=== PATIENT | male | born 1980 | race Hispanic/Latino ===

== ENCOUNTER 2019-11-06 13:42 | Inpatient (IN) | payer OTHER, SELFPAY ==
[~2019-11-06] VITALS: Ht 165.1 cm; Wt 97.1 kg
[2019-11-06] MEDS ORDERED: CEFTRIAXONE SODIUM 1 GM ONE ×2 (15:30→15:38)
[2019-11-06] MEDS ORDERED: DEXAMETHASONE SOD PHOSPHATE 10MG/ML 1ML VIAL ONE ×2 (15:30→15:37)
[2019-11-06] MEDS ORDERED: AZITHROMYCIN 500MG+NS 250ML 0 ML IV ONE (15:30)
[2019-11-06] MEDS ORDERED: SODIUM CHLORIDE 0.9% 1000ML 1,000 ML IV ONE (15:30)
[2019-11-06] MEDS ORDERED: ACETAMINOPHEN EXTRA STRENGTH 500 MG TABLET ONE ×2 (15:31→15:39)
[2019-11-06] MEDS ORDERED: AZITHROMYCIN 500MG+NS 250ML 250 ML IV ONE (15:38)
[2019-11-06 15:52] LABS: BASOPHILS % (AUTO) 0.2 % (0.0-5.0); HEMATOCRIT 47.2 % (42-54); LYMPHOCYTES % (AUTO) 10.9 % (21.0-51.0); MEAN CORPUSCULAR HEMOGLOBIN 26.5 pg (27.0-33.0); MEAN CORPUSCULAR VOLUME 82.8 fL (79-99); NEUTROPHILS % (AUTO) 84.8 % (40.0-77.0); PLATELET COUNT (AUTO) 349 K/uL (130-400); RED CELL DISTRIBUTION WIDTH 12.6 % (11.0-15.5)
[2019-11-06 16:21] LABS: CARBON DIOXIDE 28 mmol/L (21-32); CHLORIDE 97 mmol/L (101-111); CREATININE 1.1 mg/dL (0.5-1.5); GLOMERULAR FILTR. RATE CALC 79 mL/min (>60); GLUCOSE,RANDOM 102 mg/dL (70-105); POTASSIUM 3.9 mmol/L (3.5-5.1); SODIUM SERUM 136 mmol/L (136-145); UREA NITROGEN, BLOOD 13 mg/dL (7-18)
[2019-11-06 16:22] LABS: INR 0.98 (0.85-1.15); PARTIAL THROMBOPLASTIN TIME 35.5 SEC (26.3-35.5); PROTHROMBIN TIME 10.6 SEC (9.6-11.6)
[2019-11-06 16:27] LABS: ABG BASE EXCESS 1.1 mmol/L (-2.0-3.0); ABG HCO3 25.9 mmol/L (21.0-28.0); ABG OXYGEN SATURATION 92.9 % (95.0-99.0); ABG PCO2 42 mmHg (35-48)
[2019-11-06 16:32] LABS: ALANINE AMINOTRANSFERASE 161 U/L (12-78); ALBUMIN 3.4 g/dL (3.5-5.0); ASPARTATE AMINOTRANSFERASE 104 U/L (10-37); BILIRUBIN,TOTAL 0.5 mg/dL (0.2-1.0); CREATINE KINASE, TOTAL 57 U/L (21-232); MYOGLOBIN 31 ng/mL (10-92); TOTAL PROTEIN, SERUM 8.5 g/dL (6.0-8.3); TROPONIN I < 0.04 ng/mL (0.00-0.06)
[2019-11-06] MEDS ORDERED: ONDANSETRON HCL 4 MG/2 ML VIAL IV PRN (20:15)
[2019-11-06] MEDS ORDERED: ALBUTEROL INHALER 90MCG/INH IH PRN (20:15)
[2019-11-06] MEDS ORDERED: NITROGLYCERIN 0.4 MG SL TAB SL PRN (20:15)
[2019-11-06] MEDS ORDERED: DIPHENHYDRAMINE HCL 25 MG CAPSULE PO PRN (20:15)
[2019-11-06] MEDS ORDERED: ACETAMINOPHEN 325 MG TAB PO PRN ×2 (20:15)
[2019-11-06] MEDS: FAMOTIDINE 20MG TAB 20 MG TAB PO SCH (21:00)
[2019-11-06] MEDS: METHYLPREDNISOLONE SOD SUCC 40MG/ML 1ML IVP SCH (21:00)
[2019-11-06] MEDS ORDERED: ERGOCALCIFEROL (VITAMIN D2) 50,000 UNIT CAPSULE PO ONE (21:15)
[2019-11-06] MEDS ORDERED: METHYLPREDNISOLONE SOD SUCC 40MG/ML 1ML ONE (21:20)
[2019-11-06] MEDS ORDERED: ASCORBIC ACID 500 MG TAB ONE (21:20)
[2019-11-06] MEDS ORDERED: ERGOCALCIFEROL (VITAMIN D2) 50,000 UNIT CAPSULE ONE (21:20)
[2019-11-06] MEDS ORDERED: ALBUTEROL INHALER 90MCG/INH IH ONE (21:20)
[2019-11-06] MEDS ORDERED: ZINC SULFATE 220 CAPSULE ONE (21:21)
[2019-11-06] MEDS ORDERED: FAMOTIDINE 20MG TAB 20 MG TAB ONE (21:21)
[2019-11-06] MEDS ORDERED: ENOXAPARIN SODIUM 40 MG/0.4 ML SYRINGE SQ ONE (21:21)
[2019-11-06] MEDS ORDERED: ACETAMINOPHEN 325 MG TAB ONE (22:18)
[2019-11-07] MEDS: ALBUTEROL INHALER 90MCG/INH IH SCH ×6 (00:15→20:15)
[2019-11-07 06:15] LABS: BASOPHILS % (AUTO) 0.1 % (0.0-5.0); HEMATOCRIT 43.9 % (42-54); LYMPHOCYTES % (AUTO) 10.2 % (21.0-51.0); MEAN CORPUSCULAR HEMOGLOBIN 26.9 pg (27.0-33.0); MEAN CORPUSCULAR HGB CONC 32.3 g/dL (32.0-36.0); MEAN CORPUSCULAR VOLUME 83.1 fL (79-99); MONOCYTES % (AUTO) 2.6 % (3.0-13.0); NEUTROPHILS % (AUTO) 85.8 % (40.0-77.0); PLATELET COUNT (AUTO) 335 K/uL (130-400); RED BLOOD CELL COUNT(AUTO) 5.28 MIL/uL (4.50-6.20); RED CELL DISTRIBUTION WIDTH 12.6 % (11.0-15.5); WHITE BLOOD COUNT (AUTO) 7.2 K/uL (4.8-10.8)
[2019-11-07 06:48] LABS: ALBUMIN 3.1 g/dL (3.5-5.0); BILIRUBIN,TOTAL 0.3 mg/dL (0.2-1.0); CREATININE 0.9 mg/dL (0.5-1.5); POTASSIUM 4.1 mmol/L (3.5-5.1); TOTAL PROTEIN, SERUM 7.9 g/dL (6.0-8.3)
[2019-11-07 07:38] LABS: CRP QUANTITATIVE 244.9 mg/L (0.00-9.0)
[2019-11-07] MEDS ORDERED: ENOXAPARIN SODIUM 60 MG/0.6 ML SQ ONE (08:03)
[2019-11-07] MEDS ORDERED: AZITHROMYCIN 500MG+NS 250ML 250 ML IV ONE (08:03)
[2019-11-07] MEDS ORDERED: ASCORBIC ACID 500 MG TAB ONE (08:03)
[2019-11-07] MEDS ORDERED: METHYLPREDNISOLONE SOD SUCC 40MG/ML 1ML ONE ×2 (08:03→20:05)
[2019-11-07] MEDS ORDERED: ZINC SULFATE 220 CAPSULE ONE (08:03)
[2019-11-07] MEDS ORDERED: FAMOTIDINE/PF 20 MG/2 ML VIAL IV ONE ×2 (08:04→20:06)
[2019-11-07] MEDS ORDERED: CEFTRIAXONE SODIUM 1 GM ONE (08:04)
[2019-11-07] MEDS: ENOXAPARIN SODIUM 40 MG/0.4 ML SYRINGE SQ SCH (09:00)
[2019-11-07] MEDS: CEFTRIAXONE SODIUM 1 GM IV SCH (09:00)
[2019-11-07] MEDS: FAMOTIDINE 20MG TAB 20 MG TAB PO SCH ×2 (09:00→21:00)
[2019-11-07] MEDS: ZINC SULFATE 220 CAPSULE PO SCH (09:00)
[2019-11-07] MEDS: ASCORBIC ACID 500 MG TAB PO SCH (09:00)
[2019-11-07] MEDS: AZITHROMYCIN 500MG+NS 250ML 250 ML IV SCH (09:00)
[2019-11-07] MEDS: METHYLPREDNISOLONE SOD SUCC 40MG/ML 1ML IVP SCH ×3 (09:00→21:00)
--- NOTE | 2019-11-07 20:03 | NUR ---
CALL TO SPOUSE FOR DC PLANNING CLAL MADE TO SPOUSE FOR DC PLANNING BY Jayleen AGUSTIN RN. SPOSUE STATES PATIENT INDPENDENT, NO DME, NO PCP, UNINSURED - ALL FAMILY WITH SYMPTOMS. DPC HOME, [facility] TO FOLLOW FOR NEEDS AT DC, [facility] UPDATED AND FAXED Addendum: 11/07/19 at 2004 by LINH PORTILLO RN CM Amended: Links added.
[2019-11-08] MEDS: ALBUTEROL INHALER 90MCG/INH IH SCH ×6 (00:15→20:15)
[2019-11-08 04:51] LABS: BASOPHILS % (AUTO) 0.2 % (0.0-5.0); HEMATOCRIT 40.9 % (42-54); LYMPHOCYTES % (AUTO) 5.5 % (21.0-51.0); MEAN CORPUSCULAR HEMOGLOBIN 26.7 pg (27.0-33.0); MEAN CORPUSCULAR VOLUME 83.3 fL (79-99); PLATELET COUNT (AUTO) 364 K/uL (130-400); RED BLOOD CELL COUNT(AUTO) 4.91 MIL/uL (4.50-6.20); RED CELL DISTRIBUTION WIDTH 12.6 % (11.0-15.5); WHITE BLOOD COUNT (AUTO) 19.2 K/uL (4.8-10.8)
[2019-11-08 05:08] LABS: ALANINE AMINOTRANSFERASE 115 U/L (12-78); ALBUMIN 2.8 g/dL (3.5-5.0); ASPARTATE AMINOTRANSFERASE 50 U/L (10-37); BILIRUBIN,TOTAL 0.2 mg/dL (0.2-1.0); CARBON DIOXIDE 30 mmol/L (21-32); CHLORIDE 105 mmol/L (101-111); CREATININE 0.9 mg/dL (0.5-1.5); GLOMERULAR FILTR. RATE CALC 99 mL/min (>60); GLUCOSE,RANDOM 151 mg/dL (70-105); LACTATE DEHYDROGENASE 305 U/L (81-234); POTASSIUM 4.2 mmol/L (3.5-5.1); SODIUM SERUM 141 mmol/L (136-145); TOTAL PROTEIN, SERUM 7.2 g/dL (6.0-8.3); UREA NITROGEN, BLOOD 22 mg/dL (7-18)
[2019-11-08] MEDS ORDERED: METHYLPREDNISOLONE SOD SUCC 40MG/ML 1ML ONE ×2 (08:40→20:22)
[2019-11-08] MEDS ORDERED: ENOXAPARIN SODIUM 40 MG/0.4 ML SYRINGE SQ ONE (08:41)
[2019-11-08] MEDS ORDERED: CEFTRIAXONE SODIUM 1 GM ONE (08:41)
[2019-11-08] MEDS ORDERED: AZITHROMYCIN 500MG+NS 250ML 250 ML IV ONE (08:41)
[2019-11-08] MEDS ORDERED: ASCORBIC ACID 500 MG TAB ONE (08:41)
[2019-11-08] MEDS ORDERED: FAMOTIDINE/PF 20 MG/2 ML VIAL IV ONE ×2 (08:42→20:22)
[2019-11-08] MEDS: ZINC SULFATE 220 CAPSULE PO SCH (09:00)
[2019-11-08] MEDS: ASCORBIC ACID 500 MG TAB PO SCH (09:00)
[2019-11-08] MEDS: CEFTRIAXONE SODIUM 1 GM IV SCH (09:00)
[2019-11-08] MEDS: METHYLPREDNISOLONE SOD SUCC 40MG/ML 1ML IVP SCH ×3 (09:00→21:00)
[2019-11-08] MEDS: AZITHROMYCIN 500MG+NS 250ML 250 ML IV SCH (09:00)
[2019-11-08] MEDS: ENOXAPARIN SODIUM 40 MG/0.4 ML SYRINGE SQ SCH (09:00)
[2019-11-08] MEDS: FAMOTIDINE 20MG TAB 20 MG TAB PO SCH ×2 (09:00→21:00)
[2019-11-09] MEDS: ALBUTEROL INHALER 90MCG/INH IH SCH ×6 (00:15→20:15)
[2019-11-09] MEDS ORDERED: METHYLPREDNISOLONE SOD SUCC 40MG/ML 1ML ONE ×3 (08:43→20:33)
[2019-11-09] MEDS ORDERED: ASCORBIC ACID 500 MG TAB ONE (08:44)
[2019-11-09] MEDS ORDERED: ZINC SULFATE 220 CAPSULE ONE (08:44)
[2019-11-09] MEDS ORDERED: ENOXAPARIN SODIUM 40 MG/0.4 ML SYRINGE SQ ONE (08:44)
[2019-11-09] MEDS ORDERED: FAMOTIDINE 20MG TAB 20 MG TAB ONE ×2 (08:44→20:33)
[2019-11-09] MEDS ORDERED: CEFTRIAXONE SODIUM 1 GM ONE (08:45)
[2019-11-09] MEDS ORDERED: SODIUM CHLORIDE 0.9% 50 ML IV ONE (08:45)
[2019-11-09] MEDS ORDERED: AZITHROMYCIN 500MG+NS 250ML 250 ML IV ONE (08:45)
[2019-11-09] MEDS: AZITHROMYCIN 500MG+NS 250ML 250 ML IV SCH (09:00)
[2019-11-09] MEDS: FAMOTIDINE 20MG TAB 20 MG TAB PO SCH ×2 (09:00→21:00)
[2019-11-09] MEDS: CEFTRIAXONE SODIUM 1 GM IV SCH (09:00)
[2019-11-09] MEDS: ENOXAPARIN SODIUM 40 MG/0.4 ML SYRINGE SQ SCH (09:00)
[2019-11-09] MEDS: METHYLPREDNISOLONE SOD SUCC 40MG/ML 1ML IVP SCH ×3 (09:00→21:00)
[2019-11-09] MEDS: ASCORBIC ACID 500 MG TAB PO SCH (09:00)
[2019-11-09] MEDS: ZINC SULFATE 220 CAPSULE PO SCH (09:00)
[2019-11-09 09:41] LABS: BASOPHILS % (AUTO) 0.2 % (0.0-5.0); HEMATOCRIT 43.3 % (42-54); LYMPHOCYTES % (AUTO) 5.4 % (21.0-51.0); MEAN CORPUSCULAR HEMOGLOBIN 26.7 pg (27.0-33.0); MEAN CORPUSCULAR HGB CONC 31.6 g/dL (32.0-36.0); MEAN CORPUSCULAR VOLUME 84.2 fL (79-99); MONOCYTES % (AUTO) 3.6 % (3.0-13.0); NEUTROPHILS % (AUTO) 89.3 % (40.0-77.0); PLATELET COUNT (AUTO) 350 K/uL (130-400); RED BLOOD CELL COUNT(AUTO) 5.14 MIL/uL (4.50-6.20); RED CELL DISTRIBUTION WIDTH 12.6 % (11.0-15.5); WHITE BLOOD COUNT (AUTO) 19.1 K/uL (4.8-10.8)
[2019-11-09 10:21] LABS: ALANINE AMINOTRANSFERASE 225 U/L (12-78); ALBUMIN 2.9 g/dL (3.5-5.0); ASPARTATE AMINOTRANSFERASE 73 U/L (10-37); BILIRUBIN,TOTAL 0.3 mg/dL (0.2-1.0); CARBON DIOXIDE 33 mmol/L (21-32); CHLORIDE 105 mmol/L (101-111); CREATININE 0.9 mg/dL (0.5-1.5); GLOMERULAR FILTR. RATE CALC 99 mL/min (>60); GLUCOSE,RANDOM 112 mg/dL (70-105); LACTATE DEHYDROGENASE 297 U/L (81-234); POTASSIUM 4.5 mmol/L (3.5-5.1); SODIUM SERUM 143 mmol/L (136-145); TOTAL PROTEIN, SERUM 7.2 g/dL (6.0-8.3); UREA NITROGEN, BLOOD 21 mg/dL (7-18)
[2019-11-10] MEDS: ALBUTEROL INHALER 90MCG/INH IH SCH ×7 (00:15→22:37)
[2019-11-10 03:50] VITALS: BP 116/82
[2019-11-10 05:14] LABS: CREATININE 0.9 mg/dL (0.5-1.5); MAGNESIUM 2.2 mg/dL (1.80-2.40); POTASSIUM 4.6 mmol/L (3.5-5.1)
[2019-11-10 06:08] LABS: HEMATOCRIT 42.7 % (42-54); MEAN CORPUSCULAR HEMOGLOBIN 26.6 pg (27.0-33.0); MEAN CORPUSCULAR HGB CONC 31.9 g/dL (32.0-36.0); MEAN CORPUSCULAR VOLUME 83.4 fL (79-99); RED BLOOD CELL COUNT(AUTO) 5.12 MIL/uL (4.50-6.20); RED CELL DISTRIBUTION WIDTH 12.2 % (11.0-15.5); WHITE BLOOD COUNT (AUTO) 15.4 K/uL (4.8-10.8)
[2019-11-10 07:12] LABS: BILIRUBIN,TOTAL 0.3 mg/dL (0.2-1.0); CRP QUANTITATIVE 20.9 mg/L (0.00-9.0); TOTAL PROTEIN, SERUM 6.5 g/dL (6.0-8.3)
[2019-11-10 07:53] LABS: ABG BASE EXCESS 6.1 mmol/L (-2.0-3.0); ABG HCO3 31.7 mmol/L (21.0-28.0); ABG OXYGEN SATURATION 91.8 % (95.0-99.0); ABG PCO2 49 mmHg (35-48)
[2019-11-10] MEDS: METHYLPREDNISOLONE SOD SUCC 40MG/ML 1ML IVP SCH ×3 (08:18→22:29)
[2019-11-10] MEDS: CEFTRIAXONE SODIUM 1 GM IV SCH (08:18)
[2019-11-10] MEDS: ZINC SULFATE 220 CAPSULE PO SCH (08:19)
[2019-11-10] MEDS: ASCORBIC ACID 500 MG TAB PO SCH (08:19)
[2019-11-10] MEDS: AZITHROMYCIN 500MG+NS 250ML 250 ML IV SCH (08:20)
[2019-11-10] MEDS: FAMOTIDINE 20MG TAB 20 MG TAB PO SCH ×2 (08:20→22:30)
[2019-11-10] MEDS: ENOXAPARIN SODIUM 40 MG/0.4 ML SYRINGE SQ SCH (08:21)
[2019-11-10 09:36] VITALS: BP 130/72
[2019-11-10 11:44] VITALS: BP 117/77
[2019-11-10 17:14] VITALS: BP 126/68
--- NOTE | 2019-11-10 18:39 | NUR ---
PT alert, showed no signs and symptoms of distress, no pain, ABT with no adverse reactions, will continue to monitor pt
[2019-11-10 22:06] VITALS: BP 128/68
[2019-11-11] MEDS: ALBUTEROL INHALER 90MCG/INH IH SCH ×6 (00:15→20:40)
[2019-11-11 05:33] LABS: APPEARANCE,URINE Clear (CLEAR); BILIRUBIN,URINE Negative (NEGATIVE); COLOR,URINE Yellow (YELLOW); GLUCOSE, URINE (UA) Negative (NEGATIVE); KETONES,URINE Negative (NEGATIVE); LEUKOCYTE ESTERASE ,URINE Negative (NEGATIVE); NITRATE,URINE Negative (NEGATIVE); OCCULT BLOOD,URINE Negative (NEGATIVE); PROTEIN,URINE Negative (NEGATIVE)
[2019-11-11 06:11] VITALS: BP 118/71
[2019-11-11 06:51] LABS: BASOPHILS % (AUTO) 0.4 % (0.0-5.0); HEMATOCRIT 45.8 % (42-54); LYMPHOCYTES % (AUTO) 4.9 % (21.0-51.0); MEAN CORPUSCULAR HEMOGLOBIN 26.7 pg (27.0-33.0); MEAN CORPUSCULAR HGB CONC 32.1 g/dL (32.0-36.0); MEAN CORPUSCULAR VOLUME 83.3 fL (79-99); MONOCYTES % (AUTO) 4.1 % (3.0-13.0); NEUTROPHILS % (AUTO) 88.2 % (40.0-77.0); PLATELET COUNT (AUTO) 387 K/uL (130-400); RED CELL DISTRIBUTION WIDTH 12.2 % (11.0-15.5); WHITE BLOOD COUNT (AUTO) 13.8 K/uL (4.8-10.8)
[2019-11-11 06:54] LABS: CARBON DIOXIDE 32 mmol/L (21-32); CHLORIDE 101 mmol/L (101-111); CREATININE 0.9 mg/dL (0.5-1.5); GLOMERULAR FILTR. RATE CALC 99 mL/min (>60); GLUCOSE,RANDOM 185 mg/dL (70-105); LACTATE DEHYDROGENASE 284 U/L (81-234); POTASSIUM 4.5 mmol/L (3.5-5.1); SODIUM SERUM 138 mmol/L (136-145); UREA NITROGEN, BLOOD 21 mg/dL (7-18)
[2019-11-11 08:08] VITALS: BP 109/71
[2019-11-11] MEDS: FAMOTIDINE 20MG TAB 20 MG TAB PO SCH ×2 (08:31→20:38)
[2019-11-11] MEDS: METHYLPREDNISOLONE SOD SUCC 40MG/ML 1ML IVP SCH ×3 (08:31→20:38)
[2019-11-11] MEDS: AZITHROMYCIN 500MG+NS 250ML 250 ML IV SCH (08:31)
[2019-11-11] MEDS: ZINC SULFATE 220 CAPSULE PO SCH (08:31)
[2019-11-11] MEDS: ASCORBIC ACID 500 MG TAB PO SCH (08:31)
[2019-11-11] MEDS: CEFTRIAXONE SODIUM 1 GM IV SCH (08:31)
[2019-11-11] MEDS: ENOXAPARIN SODIUM 40 MG/0.4 ML SYRINGE SQ SCH (08:32)
[2019-11-11 11:30] VITALS: BP 121/74
[2019-11-11 15:56] VITALS: BP 124/69
[2019-11-11 20:00] VITALS: BP 106/72
--- NOTE | 2019-11-11 20:40 | NUR ---
MEDS SHIFT ASSESSMENT DONE, PLEASE REFER TO CHART. DUE MEDS ADMINISTERED, TOLERATED WELL. KEPT RESTED AND COMFORTABLE. CALL LIGHT WITHIN REACH. WILL MONITOR PT. Addendum: 11/11/19 at 0138 by BEATRIZ CHAPMAN RN RN Amended: Links added.
[2019-11-12 00:15] VITALS: BP 111/68
[2019-11-12] MEDS: ALBUTEROL INHALER 90MCG/INH IH SCH ×6 (00:15→20:54)
--- NOTE | 2019-11-12 02:00 | NUR ---
ROUNDS PT RESTING WELL, FAIRLY ASLEEP. NO RESPIRATORY DISTRESS NOTED. KEPT RESTED AND COMFORTABLE. CALL LIGHT WITHIN REACH. WILL MONITOR PT. CALL LIGHT WITHIN REACH.
--- NOTE | 2019-11-12 04:15 | NUR ---
MEDS AWAKENED PT FOR DUE MEDS, PUFF DONE BY PT. NO DISTRESS NOTED. NO COMPLAINTS VERBALIZED. KEPT RESTED. FOR MORE CARE.
[2019-11-12 04:23] VITALS: BP 112/66
[2019-11-12 04:49] LABS: BASOPHILS % (AUTO) 0.2 % (0.0-5.0); HEMATOCRIT 47.6 % (42-54); LYMPHOCYTES % (AUTO) 5.8 % (21.0-51.0); MEAN CORPUSCULAR HGB CONC 32.4 g/dL (32.0-36.0); MEAN CORPUSCULAR VOLUME 83.4 fL (79-99); MONOCYTES % (AUTO) 3.4 % (3.0-13.0); NEUTROPHILS % (AUTO) 88.1 % (40.0-77.0); PLATELET COUNT (AUTO) 442 K/uL (130-400); RED BLOOD CELL COUNT(AUTO) 5.71 MIL/uL (4.50-6.20); RED CELL DISTRIBUTION WIDTH 12.2 % (11.0-15.5); WHITE BLOOD COUNT (AUTO) 14.2 K/uL (4.8-10.8)
[2019-11-12 05:14] LABS: ALANINE AMINOTRANSFERASE 287 U/L (12-78); ALBUMIN 3.2 g/dL (3.5-5.0); ASPARTATE AMINOTRANSFERASE 31 U/L (10-37); BILIRUBIN,TOTAL 0.4 mg/dL (0.2-1.0); CARBON DIOXIDE 34 mmol/L (21-32); CHLORIDE 98 mmol/L (101-111); GLOMERULAR FILTR. RATE CALC 88 mL/min (>60); GLUCOSE,RANDOM 149 mg/dL (70-105); LACTATE DEHYDROGENASE 294 U/L (81-234); POTASSIUM 4.6 mmol/L (3.5-5.1); SODIUM SERUM 136 mmol/L (136-145); TOTAL PROTEIN, SERUM 7.2 g/dL (6.0-8.3); UREA NITROGEN, BLOOD 22 mg/dL (7-18)
[2019-11-12 08:00] VITALS: BP 109/73
[2019-11-12] MEDS: AZITHROMYCIN 500MG+NS 250ML 250 ML IV SCH (10:09)
[2019-11-12] MEDS: CEFTRIAXONE SODIUM 1 GM IV SCH (10:09)
[2019-11-12] MEDS: ZINC SULFATE 220 CAPSULE PO SCH (10:11)
[2019-11-12] MEDS: METHYLPREDNISOLONE SOD SUCC 40MG/ML 1ML IVP SCH ×3 (10:11→20:53)
[2019-11-12] MEDS: ENOXAPARIN SODIUM 40 MG/0.4 ML SYRINGE SQ SCH (10:11)
[2019-11-12] MEDS: ASCORBIC ACID 500 MG TAB PO SCH (10:11)
[2019-11-12] MEDS: FAMOTIDINE 20MG TAB 20 MG TAB PO SCH ×2 (10:11→20:54)
[2019-11-12] MEDS ORDERED: POTASSIUM CHLORIDE 10% ELIXIR 20 MEQ/15 ML UDCUP PO PRN (10:45)
[2019-11-12] MEDS ORDERED: POTASSIUM CHLORIDE 20 MEQ ERTAB PO PRN (10:45)
[2019-11-12] MEDS ORDERED: POTASSIUM CHLORIDE 20MEQ/100ML 100 ML IV PRN ×2 (10:45)
[2019-11-12 12:00] VITALS: BP 97/57
[2019-11-12 16:00] VITALS: BP 110/73
--- NOTE | 2019-11-12 18:00 | NUR ---
SHIFT SUMMARY: PT DID WELL THROUGHOUT THE DAY ON NASAL CANULA HE WAS INITIALLY AT 4L AND IN THE AM I DECREASED HIM TO 3L, HIS SAT'S 99% ON 3L; FUNERAL ARRANGEMENT DIRECTOR TALKED ABOUT SETTING UP PATIENT WITH OXYGEN AT HOME SO HE COULD BE D/C TO HOME AND PT IS AGREEABLE TO THAT, I HAVE NOT HEARD BACK FROM HER THAT IT WAS SET UP; PT AMBULATES OCCASIONALY IN ROOM W/OUT OXYGEN ON AND WAS ALSO ABLE TO TAKE A SHOWER WITHOUT OXYGEN ON; PT STATES HE LIVES WITH HIS FAMILY AND THEY ARE IN GOOD HEALTH AND WILL BE ABLE TO HELP HIM AT HOME.
[2019-11-12 19:00] VITALS: BP 117/57
[2019-11-13] VITALS (7 sets, daily range): BP systolic 104–120; BP diastolic 65–73
[2019-11-13] MEDS: ALBUTEROL INHALER 90MCG/INH IH SCH ×5 (00:15→19:35)
[2019-11-13 04:34] LABS: BASOPHILS % (AUTO) 0.2 % (0.0-5.0); HEMATOCRIT 48.3 % (42-54); LYMPHOCYTES % (AUTO) 5.3 % (21.0-51.0); MEAN CORPUSCULAR HEMOGLOBIN 26.6 pg (27.0-33.0); MEAN CORPUSCULAR HGB CONC 32.3 g/dL (32.0-36.0); MEAN CORPUSCULAR VOLUME 82.3 fL (79-99); MONOCYTES % (AUTO) 5.3 % (3.0-13.0); NEUTROPHILS % (AUTO) 86.7 % (40.0-77.0); PLATELET COUNT (AUTO) 399 K/uL (130-400); RED BLOOD CELL COUNT(AUTO) 5.87 MIL/uL (4.50-6.20); WHITE BLOOD COUNT (AUTO) 15.4 K/uL (4.8-10.8)
[2019-11-13 04:53] LABS: ALANINE AMINOTRANSFERASE 290 U/L (12-78); ALBUMIN 3.1 g/dL (3.5-5.0); ASPARTATE AMINOTRANSFERASE 46 U/L (10-37); BILIRUBIN,TOTAL 0.3 mg/dL (0.2-1.0); CARBON DIOXIDE 32 mmol/L (21-32); CHLORIDE 100 mmol/L (101-111); GLOMERULAR FILTR. RATE CALC 88 mL/min (>60); GLUCOSE,RANDOM 154 mg/dL (70-105); LACTATE DEHYDROGENASE 195 U/L (81-234); POTASSIUM 4.3 mmol/L (3.5-5.1); SODIUM SERUM 137 mmol/L (136-145); TOTAL PROTEIN, SERUM 6.9 g/dL (6.0-8.3); UREA NITROGEN, BLOOD 23 mg/dL (7-18)
[2019-11-13] MEDS: METHYLPREDNISOLONE SOD SUCC 40MG/ML 1ML IVP SCH ×3 (08:41→21:12)
[2019-11-13] MEDS: ASCORBIC ACID 500 MG TAB PO SCH (08:42)
[2019-11-13] MEDS: ENOXAPARIN SODIUM 40 MG/0.4 ML SYRINGE SQ SCH (08:42)
[2019-11-13] MEDS: ZINC SULFATE 220 CAPSULE PO SCH (08:42)
[2019-11-13] MEDS: FAMOTIDINE 20MG TAB 20 MG TAB PO SCH ×2 (08:42→21:12)
[2019-11-14] MEDS: ALBUTEROL INHALER 90MCG/INH IH SCH ×3 (00:15→08:21)
[2019-11-14 03:50] VITALS: BP 111/70
[2019-11-14 05:28] LABS: BASOPHILS % (AUTO) 0.2 % (0.0-5.0); HEMATOCRIT 45.6 % (42-54); LYMPHOCYTES % (AUTO) 4.8 % (21.0-51.0); MEAN CORPUSCULAR HEMOGLOBIN 26.3 pg (27.0-33.0); MEAN CORPUSCULAR HGB CONC 32.2 g/dL (32.0-36.0); MEAN CORPUSCULAR VOLUME 81.7 fL (79-99); MONOCYTES % (AUTO) 3.3 % (3.0-13.0); NEUTROPHILS % (AUTO) 87.5 % (40.0-77.0); PLATELET COUNT (AUTO) 427 K/uL (130-400); RED BLOOD CELL COUNT(AUTO) 5.58 MIL/uL (4.50-6.20); WHITE BLOOD COUNT (AUTO) 17.6 K/uL (4.8-10.8)
[2019-11-14 05:58] LABS: ALANINE AMINOTRANSFERASE 224 U/L (12-78); ASPARTATE AMINOTRANSFERASE 30 U/L (10-37); BILIRUBIN,TOTAL 0.4 mg/dL (0.2-1.0); CARBON DIOXIDE 32 mmol/L (21-32); CHLORIDE 99 mmol/L (101-111); CREATININE 0.9 mg/dL (0.5-1.5); GLOMERULAR FILTR. RATE CALC 99 mL/min (>60); GLUCOSE,RANDOM 145 mg/dL (70-105); LACTATE DEHYDROGENASE 162 U/L (81-234); POTASSIUM 4.6 mmol/L (3.5-5.1); SODIUM SERUM 135 mmol/L (136-145); TOTAL PROTEIN, SERUM 6.7 g/dL (6.0-8.3); UREA NITROGEN, BLOOD 21 mg/dL (7-18)
[2019-11-14 08:00] VITALS: BP 106/70
[2019-11-14] MEDS: ASCORBIC ACID 500 MG TAB PO SCH (08:19)
[2019-11-14] MEDS: ZINC SULFATE 220 CAPSULE PO SCH (08:19)
[2019-11-14] MEDS: FAMOTIDINE 20MG TAB 20 MG TAB PO SCH (08:19)
[2019-11-14] MEDS: ENOXAPARIN SODIUM 40 MG/0.4 ML SYRINGE SQ SCH (08:20)
[2019-11-14] MEDS: METHYLPREDNISOLONE SOD SUCC 40MG/ML 1ML IVP SCH (08:21)
[2019-11-14] MEDS ORDERED: DEXA6TAB PO (08:59)
[2019-11-14 11:00] VITALS: BP 107/65
--- NOTE | 2019-11-14 12:00 | NUR ---
Pt was alert, on room air sat at 94%, pt showed no signs and symptoms of distress, pt was discharged, pt stated he understood his discharge instructions and stay home to self isolate for 10-14 days
== END 2019-11-14 13:00 | disposition home or self-care (01) | DRG 871 ==
LOC: EDH 13:42 → EDHIP 13:43 → 4DH 11-10 00:53
PROVIDERS: ADMIT Internal Medicine; ATTEND Internal Medicine
DX: A41.89 Other specified sepsis (principal); J96.01 Acute respiratory failure with hypoxia; U07.1 COVID-19; J12.89 Other viral pneumonia; R65.20 Severe sepsis without septic shock; Z68.35 Body mass index [BMI] 35.0-35.9, adult; E66.9 Obesity, unspecified; I10 Essential (primary) hypertension; E78.5 Hyperlipidemia, unspecified
CPT/HCPCS: 36415; 36600; 71045; 80048; 80053; 81003; 82550; 82728; 82803; 83605; 83615; 83735; 83874; 83880; 84145; 84484; 85025; 85027; 85378; 85610; 85730; 86140; 86900; 86901; 87040; 87088; 87486; 87581; 87633; 87798; 87804; 93005; 99291; G0378; J0456; J0696; J1100; J1650; J2920; J3490; J7030; U0003

== ENCOUNTER 2021-10-09 15:42 | Emergency (ER) | payer OTHER ==
[~2021-10-09] VITALS: Ht 170.2 cm; Wt 102.1 kg
[~2021-10-09 15:42] MED LIST: DEXA6TAB PO
[2021-10-09] MEDS ORDERED: D-ME1POW16 PO (17:47)
[2021-10-09 18:06] VITALS: BP 125/84
== END 2021-10-09 18:10 | disposition home or self-care (01) ==
LOC: EDH 15:42
DX: U07.1 COVID-19 (principal); B34.9 Viral infection, unspecified
CPT/HCPCS: 87635; 87804 ×2; 87880; 99283; C9803